=== PATIENT | female | born 1995 | race Caucasian/White ===

== ENCOUNTER 2023-11-10 00:10 | Emergency (ER) | payer OTHER ==
[~2023-11-10] VITALS: Ht 195.6 cm; Wt 104.3 kg
[2023-11-10 00:20] VITALS: BP 118/77; PULSE 82; RESP 17; TEMP 98; O2SAT 98
[2023-11-10 00:48] VITALS: BP 118/77; PULSE 82; RESP 17; TEMP 98; O2SAT 98
== END 2023-11-10 00:47 | disposition home or self-care (01) ==
LOC: MED 00:10
DX: R07.89 Other chest pain (principal); F41.9 Anxiety disorder, unspecified
CPT/HCPCS: 93005; 99283